=== PATIENT | female | born 1950 | race Caucasian/White ===

== ENCOUNTER 2017-12-03 09:31 | Inpatient (IN) ==
[2017-11-27 17:02] LABS: Appearance,Urine CLEAR; Bilirubin,Urine NEG (NEG); Color,Urine STRAW; Glucose,Urine (UA) NEGATIVE (NEG); Leukocyte Esterase,Urine NEG /uL (NEG); Protein,Urine NEG (NEG); Specific Gravity,Urine 1.012 (1.000-1.035); Urine Blood NEG mg/dL (<0.03); Urobilinogen,Urine NEG (NEG)
[2017-11-27 18:07] LABS: Blood Urea Nitrogen 19 mg/dl (8-23)
[2017-11-27 18:19] LABS: Basophils # (Auto) 0 K/mcL (0.0-0.3); Basophils % (Auto) 0.6 % (0.0-2.0); Eosinophils # (Auto) 0.1 K/mcL (0.0-0.7); Eosinophils % (Auto) 2.3 % (0.0-7.0); Granulocytes % (Auto) 56.6 % (38.0-78.0); Lymphocytes # (Auto) 1.6 K/mcL (1.5-4.8); Lymphocytes % (Auto) 30.7 % (15.5-49.0); Mean Cell Volume 89.1 fL (80.0-100.0); Mean Corpuscular HGB Conc 33.3 g/dL (31.0-36.0); Mean Corpuscular Hemoglobin 29.7 pg (26.0-34.0); Monocytes # (Auto) 0.5 K/mcL (0.1-0.9); Monocytes % (Auto) 9.8 % (1.0-12.0); Platelet Count 201 K/mcL (140-440); RBC 4.59 M/mcL (4.00-5.20); Red Cell Distribution Width 14.4 % (11.5-14.5)
[~2017-12-03 09:31] MED LIST: ACETAMINOPHEN 500 MG TABLET PO SCH; IPRATROPIUM/ALBUTEROL 3 ML AMPUL.NEB NEB PRN; SCOPOLAMINE 1 PATCH PATCH TOPICAL PRN; ceFAZolin 1 GM VIAL IV SCH; oxyCODONE 10 MG TAB.ER.12H PO SCH
[2017-12-03] MEDS ORDERED: GENTAMICIN SULFATE 800 MG/20 ML VIAL IR ONE (10:55)
[2017-12-03] MEDS ORDERED: KETOROLAC 30 MG, ROPIVACAINE HCL/PF 49.5 ML, EPINEPHrine 0.5 MG, 0.9 % SODIUM CHLORIDE ... IJ ONE (11:00)
[2017-12-03] MEDS ORDERED: LORazepam 2 MG/ML VIAL IV ONE (11:17)
[2017-12-03] MEDS ORDERED: KETAMINE 100 MG/ML ML IV ONE (12:05)
[2017-12-03] MEDS ORDERED: ePHEDrine 50 MG/ML AMPUL IV ONE (12:05)
[2017-12-03] MEDS ORDERED: MIDAZOLAM 2 MG/2 ML VIAL IV ONE (12:05)
[2017-12-03] MEDS ORDERED: GLYCOPYRROLATE 0.2 MG/ML VIAL IV ONE (12:05)
[2017-12-03] MEDS ORDERED: LIDOCAINE HCL/PF 100 MG/5 ML SYRINGE IV ONE (12:05)
[2017-12-03] MEDS ORDERED: TRANEXAMIC ACID 1,000 MG/10 ML VIAL IV ONE ×3 (12:05→13:57)
[2017-12-03] MEDS ORDERED: PROPOFOL 200 MG/20 ML VIAL IV ONE (12:05)
[2017-12-03] MEDS ORDERED: ONDANSETRON 4 MG/2 ML VIAL IV ONE (12:05)
[2017-12-03] MEDS ORDERED: PHENYLEPHRINE 10 MG/ML VIAL IV ONE (12:05)
[2017-12-03] MEDS ORDERED: ONDANSETRON 4 MG/2 ML VIAL IV PRN (13:33)
[2017-12-03] MEDS ORDERED: ACETAMINOPHEN 325 MG TABLET PO PRN (13:33)
[2017-12-03] MEDS ORDERED: FLEETS ADULT ENEMA PR PRN (13:33)
[2017-12-03] MEDS ORDERED: KETOROLAC 15 MG/ML VIAL IV PRN (13:33)
[2017-12-03] MEDS ORDERED: BENZOCAINE/MENTHOL 1 LOZENGE PO PRN (13:33)
[2017-12-03] MEDS ORDERED: TEMAZEPAM 15 MG CAPSULE PO PRN (13:33)
[2017-12-03] MEDS ORDERED: BISACODYL 10 MG SUPP.RECT PR PRN (13:33)
[2017-12-03] MEDS ORDERED: POLYETHYLENE GLYCOL 3350 17 GM PACKET PO PRN (13:33)
[2017-12-03] MEDS ORDERED: HYDROmorphone 2 MG/ML VIAL IV PRN (13:33)
[2017-12-03] MEDS ORDERED: MAGNESIUM HYDROXIDE 30 ML ORAL.SUSP PO PRN (13:33)
[2017-12-03] MEDS ORDERED: MEPERIDINE 25 MG/ML SYRINGE IV PRN (13:35)
[2017-12-03] MEDS ORDERED: fentaNYL 100 MCG/2 ML VIAL IV PRN (13:35)
[2017-12-03] MEDS ORDERED: IPRATROPIUM/ALBUTEROL 3 ML AMPUL.NEB NEB PRN (13:35)
[2017-12-03] MEDS ORDERED: METHOCARBAMOL 1,000 MG/10 ML VIAL IV PRN (13:35)
--- NOTE | 2017-12-03 13:39 | Brief Operative Note ---
Date of procedure: 12/03/17 Pre-op diagnosis: left hip djd Post-op diagnosis: same Procedure: left total hip Grafts/Implants: Yes Anesthesia: ASHLEIGHA Surgeon: Jose Vaca Employment Security Officer: Adrian Mason Estimated blood loss (cc): 300 Specimens Removed/Pathology: none sent Condition: stable Disposition: PACU
[2017-12-03] MEDS ORDERED: LACTATED RINGERS 1,000 ML IV SCH (13:45)
[2017-12-03] MEDS ORDERED: LORazepam 2 MG/ML VIAL IV PRN (13:53)
--- NOTE | 2017-12-03 14:08 | XRay Report ---
HISTORY: Reason for Exam:HIP ARTHROPLASTY FINDINGS: Patient has bilateral well positioned total hip prosthesis. The one on the left side is new since 09/28/14. The one on the right side was present on the prior exam. There is no evidence of a fracture. IMPRESSION: Well-positioned bilateral hip prosthesis Interpreted and Authenticated by: Robert Hsieh 12/03/17
--- NOTE | 2017-12-03 14:13 | Operative Note ---
DATE OF OPERATION: 12/03/2017 PREOPERATIVE DIAGNOSIS: Left hip degenerative arthritis. POSTOPERATIVE DIAGNOSIS: Left hip degenerative arthritis. PROCEDURE: Left total hip arthroplasty. SURGEON: Jose Vaca M.D. FIBERGLASS AUTOBODY REPAIRER: Adrian Mason PA-C. ANESTHESIA: General LMA anesthesia. COMPLICATIONS: None. DESCRIPTION OF PROCEDURE: The patient was brought to the operating room and put to sleep with general LMA anesthesia. Once asleep, the patient had the left hip sterilely prepped and draped in the usual sterile fashion. Once this was done, we then confirmed the operative site, made a superior-posterior approach to the hip using the retractors and released the capsule superior posteriorly. This was tagged and dislocated the hip. Neck cut was made at 32 mm below the central rotation of the femoral head. I then reamed up the acetabulum to the size of 49, implanted a 50 cup with a 30 mm screw. A 36 mm liner was placed. The cup was positioned at 40 degrees of inclination and 20 degrees of anteversion. Once done, we then broached up to the size 3 stem. A size 3 stem was broached and trialed. This seemed to have equal leg lengths with the trial. We then countersank it a little bit more, and it seemed to still have equal leg length. We then implanted the size 3 stem with a neutral neck length, 36 mm head. It was extremely stable through the range of motion. Finally implanted, it was up to 90 degrees internal rotation with adduction and difficult to dislocate. This was completely stable throughout. There was no tension of the IT band. It was appropriate size and offset. We irrigated again and then closed the deep fascial layer with #1 Stratafix, closed the fascial layer with #1 Stratafix, and then closed the skin with 2-0 Vicryl and adhesive closure. RBH:dianne Job ID: [id number] Doc ID: [id number] Jose Vaac MD
[2017-12-03] MEDS: 0.45 % SODIUM CHLORIDE 1,000 ML IV SCH ×2 (14:22→22:37)
[2017-12-03] MEDS ORDERED: LORazepam 1 MG TABLET PO PRN (14:25)
--- NOTE | 2017-12-03 15:01 | XRay Report ---
HISTORY: Reason for Exam:Post-Op Total Hip FINDINGS: Patient has well-positioned bilateral total hip prosthesis. The one on the left is new and there is air in the overlying soft tissues. There is no pelvic or hip fracture. No abnormal soft tissue calcification is present. IMPRESSION: Well-positioned bilateral hip prosthesis Interpreted and Authenticated by: Robert Hsieh 12/03/17
[2017-12-03] MEDS: 0.9 % SODIUM CHLORIDE 10 ML SYRINGE IV SCH ×2 (17:09→20:14)
[2017-12-03] MEDS: ceFAZolin 1 GM VIAL IV SCH (20:13)
[2017-12-03] MEDS: ASPIRIN 325 MG ENTERIC COATED TABLET PO SCH (20:13)
[2017-12-03] MEDS: DOCUSATE SODIUM 100 MG CAPSULE PO SCH (20:13)
[2017-12-03] MEDS: CLOBETASOL PROP OINT 0.05% TUBE 15GM TOPICAL SCH (20:14)
[2017-12-03] MEDS: UBIDECARENONE 100 MG PO SCH (20:15)
[2017-12-03] MEDS ORDERED: NORTRIPTYLINE 10 MG CAPSULE PO SCH (21:00)
[2017-12-03] MEDS ORDERED: SENNOSIDES 1 TABLET PO SCH (21:00)
[2017-12-04] MEDS: HYDROcodone/APAP 10/325MG TABLET PO PRN ×3 (02:29→12:04)
[2017-12-04] MEDS: ceFAZolin 1 GM VIAL IV SCH (04:04)
[2017-12-04] MEDS: 0.9 % SODIUM CHLORIDE 10 ML SYRINGE IV SCH (06:02)
--- NOTE | 2017-12-04 07:48 | Orthopedic Progress Note ---
Subjective Patient information: Note initiated : 12/04/17 at 7:47 am Service Date, if different from initiated Date: [] Patient: Ita Trent 67 y/o F admitted on 12/03/17 for Left Total Hip Arthroplasty. Chief Complaint: [Pt is stable this morning on post operative day 1 without any significant concerns or complaints. Patients vital signs have remained stable. Patients dressing is dry and is grossly instact from a neurovascular and motor standpoint. Patients 10 point ROS is otherwise negative. ] Objective Vital signs: Vital Signs Temp Pulse Resp BP Pulse Ox 12/04/17 07:11 97.4 F 68 12 105/52 98 12/04/17 04:05 99 12/04/17 03:15 98.2 F 74 12 126/66 99 12/04/17 02:32 98 12/04/17 01:00 97 12/04/17 00:11 97.6 F 73 12 106/65 96 12/03/17 23:00 96 12/03/17 20:38 99 12/03/17 20:00 97.9 F 75 12 110/72 99 12/03/17 19:00 99 12/03/17 17:19 114/71 99 12/03/17 17:00 99 12/03/17 16:22 105/67 99 12/03/17 15:49 96/63 95 12/03/17 15:33 96 12/03/17 15:19 99/64 96 12/03/17 15:04 98/64 94 12/03/17 14:50 98/55 96 12/03/17 14:34 95/57 96 12/03/17 14:19 97/58 97 12/03/17 14:06 97.4 F 56 L 15 118/64 99 12/03/17 13:52 97.0 F 63 18 114/53 98 12/03/17 13:48 13 107/55 100 12/03/17 13:43 98.2 F 13 121/63 100 12/03/17 13:38 98.2 F 11 L 126/73 100 12/03/17 09:50 97.4 F 16 130/88 95 Intake and Output 12/03/17 12/04/17 12/04/17 21:59 05:59 13:59 Intake Total 1698 / 1698 150 / 150 Output Total 250 / 250 950 / 950 Balance 1448 / 1448 -800 / -800 Intake: IV 658 / 658 Sodium Chloride 0.45% 1,000 ml 658 / 658 @ 100 mls/hr IV .Q10H KARLEY Rx#: [id number] Oral 1040 / 1040 150 / 150 Output: Void Amount 250 / 250 950 / 950 Other: Meal Dinner Percent of Meal Consumed 100% Weight 224 lb Intake & Output: Intake & Output 12/03/17 12/04/17 12/04/17 21:59 05:59 13:59 Intake Total 1698 / 1698 150 / 150 Output Total 250 / 250 950 / 950 Balance 1448 / 1448 -800 / -800 Weight 224 lb Intake: IV 658 / 658 Sodium Chloride 0.45% 1,000 ml 658 / 658 @ 100 mls/hr IV .Q10H KARLEY Rx#: [id number] Oral 1040 / 1040 150 / 150 Output: Void Amount 250 / 250 950 / 950 Other: Meal Dinner Percent of Meal Consumed 100% Incision: Yes healing Incision clean and dry: Yes Dressing: Yes clean Weight bearing status: full Neurological exam IM: Yes motor sensory intact, Yes neurovascular intact Extremities exam IM: Yes Foot pink and warm, Yes neurovascular intact - Labs CBC & BMP: 11/27/17 14:53 11/27/17 14:53 Labs: 11/27/17 14:53 Hgb 13.6 Hct 41.0 Assessment and Plan (1) Hx of total hip arthroplasty The patient has been educated regarding dressing care, Physical Therapy recommendations, home exercises, restrictions, and follow up appointments. The patient has had all necessary DME prescribed. The patient has remained relatively stable during their hospital course. I consulted with Dr Vaca regarding her O2 concerns as well as if he wants a Hospitalist Consult for her. Status: Acute
--- NOTE | 2017-12-04 07:50 | Discharge Summary ---
Ortho Discharge - IVY - Patient Instructions Diet: Regular Diet Activity: activity as tolerated, weight bearing as tolerated Total Hip Protocol: Follow activity instructions as provided by Physical Therapy. Dressing Care: May shower in 2 days - Problem Maintenance (1) Hx of total hip arthroplasty Status: Acute - Follow Up Plan Follow Up Appointments: Adrian Mason PA-C [Physician Warehouse Operations Associate] - 12/18/17 10:10 am Disposition: Home, Self-Care Prognosis: Good Rehab Potential: Good I certify that the patient requires SNF services: No Overall status at discharge: patient is progressing back to baseline - Orders For Discharge Prescriptions: Aspirin [Ecotrin] 325 mg PO BID #60 tab.ec Docusate Sodium [Colace] 100 mg PO BID #60 cap HYDROcodone/APAP 10/325MG [Veguita 10-325Mg] 1 - 2 tab PO Q4HP PRN #75 tab PRN Reason: Pain Level 3-6
[2017-12-04] MEDS ORDERED: FEXOFENADINE 180 MG TABLET PO SCH (09:00)
[2017-12-04] MEDS ORDERED: LISINOPRIL 20 MG TABLET PO SCH (09:00)
[2017-12-04] MEDS ORDERED: buPROPion 150 MG TAB.XL.24H PO SCH (09:00)
[2017-12-04] MEDS ORDERED: HYDROCHLOROTHIAZIDE 25 MG TABLET PO SCH (09:00)
[2017-12-04] MEDS ORDERED: [UNRECOGNIZED DRUG - OTHER] PO SCH (09:00)
[2017-12-04] MEDS ORDERED: FISH OIL 1,000 MG CAPSULE PO SCH (09:00)
[2017-12-04] MEDS: ASPIRIN 325 MG ENTERIC COATED TABLET PO SCH (09:01)
[2017-12-04] MEDS: DOCUSATE SODIUM 100 MG CAPSULE PO SCH (09:01)
[2017-12-04] MEDS: 0.45 % SODIUM CHLORIDE 1,000 ML IV SCH (09:33)
[2017-12-04] MEDS: CLOBETASOL PROP OINT 0.05% TUBE 15GM TOPICAL SCH (09:33)
[2017-12-04] MEDS: UBIDECARENONE 100 MG PO SCH (09:33)
== END 2017-12-04 14:55 | disposition home or self-care (01) | DRG 470 ==
LOC: MEDSUR 09:31
PROVIDERS: ADMIT Orthopaedic Surgery; ATTEND Orthopaedic Surgery

== ENCOUNTER 2018-04-19 07:30 | Inpatient (IN) ==
[2018-04-16 12:34] LABS: Appearance,Urine CLEAR; Bilirubin,Urine NEG (NEG); Color,Urine YELLOW; Glucose,Urine (UA) NEGATIVE (NEG); Leukocyte Esterase,Urine NEG /uL (NEG); Protein,Urine NEG (NEG); Specific Gravity,Urine 1.014 (1.000-1.035); Urine Blood NEG mg/dL (<0.03); Urobilinogen,Urine NEG (NEG)
[2018-04-16 12:34] LABS: Basophils # (Auto) 0.1 K/mcL (0.0-0.3); Basophils % (Auto) 1.3 % (0.0-2.0); Eosinophils # (Auto) 0.1 K/mcL (0.0-0.7); Eosinophils % (Auto) 3.1 % (0.0-7.0); Granulocytes % (Auto) 50.9 % (38.0-78.0); Lymphocytes # (Auto) 1.4 K/mcL (1.5-4.8); Lymphocytes % (Auto) 31.8 % (15.5-49.0); Mean Cell Volume 84.4 fL (80.0-100.0); Mean Corpuscular HGB Conc 34.4 g/dL (31.0-36.0); Mean Corpuscular Hemoglobin 29.1 pg (26.0-34.0); Monocytes # (Auto) 0.6 K/mcL (0.1-0.9); Monocytes % (Auto) 12.9 % (1.0-12.0); Platelet Count 182 K/mcL (140-440); RBC 4.65 M/mcL (4.00-5.20); Red Cell Distribution Width 15.9 % (11.5-14.5)
[2018-04-16 12:43] LABS: Blood Urea Nitrogen 19 mg/dl (8-23)
[~2018-04-19 07:30] MED LIST changes: -IPRATROPIUM/ALBUTEROL 3 ML AMPUL.NEB NEB PRN; -SCOPOLAMINE 1 PATCH PATCH TOPICAL PRN
[2018-04-19] MEDS ORDERED: PREGABALIN 75 MG CAPSULE PO SCH (10:00)
[2018-04-19] MEDS ORDERED: BISACODYL 10 MG SUPP.RECT PR PRN (10:17)
[2018-04-19] MEDS ORDERED: BENZOCAINE/MENTHOL 1 LOZENGE PO PRN (10:17)
[2018-04-19] MEDS ORDERED: TRANEXAMIC ACID 1,000 MG/10 ML VIAL IV SCH (10:17)
[2018-04-19] MEDS ORDERED: MAGNESIUM HYDROXIDE 30 ML ORAL.SUSP PO PRN (10:17)
[2018-04-19] MEDS ORDERED: FLEETS ADULT ENEMA PR PRN (10:17)
[2018-04-19] MEDS ORDERED: ACETAMINOPHEN 325 MG TABLET PO PRN (10:17)
[2018-04-19] MEDS ORDERED: HYDROmorphone 2 MG/ML VIAL IV PRN (10:17)
[2018-04-19] MEDS ORDERED: oxyCODONE/APAP 5/325MG TABLET PO PRN (10:17)
[2018-04-19] MEDS ORDERED: ONDANSETRON 4 MG/2 ML VIAL IV PRN (10:17)
[2018-04-19] MEDS ORDERED: POLYETHYLENE GLYCOL 3350 17 GM PACKET PO PRN (10:17)
--- NOTE | 2018-04-19 10:17 | Brief Operative Note ---
Date of procedure: 04/19/18 Pre-op diagnosis: right shoulder rca and bicep tear Post-op diagnosis: same Procedure: right reverse tsaa and bicep tenodesis Grafts/Implants: Yes Anesthesia: GETA Complications: none Surgeon: Jose Vaca Fertilizer Supervisor: Adrian Mason Estimated blood loss (cc): 100 Specimens Removed/Pathology: none sent Condition: stable Disposition: PACU
[2018-04-19] MEDS ORDERED: CLOBETASOL PROP OINT 0.05% TUBE 15GM TOPICAL PRN (10:18)
[2018-04-19] MEDS ORDERED: ceFAZolin 1 GM VIAL IV SCH ×2 (10:30→19:30)
[2018-04-19] MEDS ORDERED: TRANEXAMIC ACID 1,000 MG/10 ML VIAL IV ONE (11:40)
[2018-04-19] MEDS ORDERED: MIDAZOLAM 2 MG/2 ML VIAL IV ONE (11:40)
[2018-04-19] MEDS ORDERED: LIDOCAINE HCL/PF 100 MG/5 ML SYRINGE IV ONE (11:40)
[2018-04-19] MEDS ORDERED: fentaNYL 100 MCG/2 ML VIAL IV ONE (11:40)
[2018-04-19] MEDS ORDERED: PROPOFOL 200 MG/20 ML VIAL IV ONE (11:40)
[2018-04-19] MEDS ORDERED: GLYCOPYRROLATE 0.2 MG/ML VIAL IV ONE (11:40)
[2018-04-19] MEDS ORDERED: ONDANSETRON 4 MG/2 ML VIAL IV ONE (11:40)
[2018-04-19] MEDS ORDERED: ROCURONIUM 10 MG/ML ML IV ONE (11:40)
[2018-04-19] MEDS ORDERED: NEOSTIGMINE 1 MG/ML VIAL IV ONE (11:40)
[2018-04-19] MEDS ORDERED: KETAMINE 100 MG/ML ML IV ONE (11:40)
[2018-04-19] MEDS ORDERED: BUPIVACAINE PF 0.5% 30 ML VIAL IJ ONE (11:40)
[2018-04-19] MEDS ORDERED: GENTAMICIN SULFATE 800 MG/20 ML VIAL IR ONE (12:12)
[2018-04-19] MEDS ORDERED: MEPERIDINE 50 MG/ML INJECTION IM PRN (12:53)
[2018-04-19] MEDS ORDERED: METHOCARBAMOL 1,000 MG/10 ML VIAL IV PRN (12:53)
[2018-04-19] MEDS ORDERED: PROMETHAZINE 25 MG/ML VIAL IM PRN (12:53)
[2018-04-19] MEDS ORDERED: IPRATROPIUM/ALBUTEROL 3 ML AMPUL.NEB NEB PRN (12:53)
[2018-04-19] MEDS ORDERED: PROMETHAZINE 25 MG/ML VIAL IV PRN (12:53)
[2018-04-19] MEDS ORDERED: LORazepam 2 MG/ML VIAL IV PRN (12:53)
[2018-04-19] MEDS ORDERED: MEPERIDINE 25 MG/ML SYRINGE IV PRN (12:53)
[2018-04-19] MEDS ORDERED: LACTATED RINGERS 1,000 ML IV SCH (13:00)
[2018-04-19] MEDS: fentaNYL 100 MCG/2 ML VIAL IV PRN ×3 (13:41→13:45)
--- NOTE | 2018-04-19 14:13 | XRay Report ---
CLINICAL INFORMATION: Postsurgical follow-up TECHNIQUE: AP and Y view COMPARISON: None. FINDINGS: Status post right reverse shoulder arthroplasty. Alignment appears anatomic. IMPRESSION: Status post right reverse shoulder arthroplasty Interpreted and Authenticated by: Reid Ruffin 04/19/18
[2018-04-19] MEDS: 0.45 % SODIUM CHLORIDE 1,000 ML IV SCH ×2 (15:08→20:42)
[2018-04-19] MEDS: 0.9 % SODIUM CHLORIDE 10 ML SYRINGE IV SCH ×2 (15:08→20:43)
[2018-04-19] MEDS: KETOROLAC 15 MG/ML VIAL IV PRN (15:17)
[2018-04-19] MEDS ORDERED: traMADol 50 MG TABLET PO PRN (16:14)
--- NOTE | 2018-04-19 16:48 | Operative Note ---
DATE OF OPERATION: 04/19/2018 PREOPERATIVE DIAGNOSIS: Right shoulder rotator cuff arthropathy. POSTOPERATIVE DIAGNOSIS: Right shoulder rotator cuff arthropathy. PROCEDURE: Right reverse total shoulder and biceps tenodesis. SURGEON: Jose Vaca M.D. [place] LAYUP LINE CORE FEEDER: Adrian Mason PA-C. ANESTHESIA: General LMA anesthesia. IMPLANTS: Anthony reverse total shoulder, implant size per nurse's note. COMPLICATIONS: None. ESTIMATED BLOOD LOSS: 100 mL. SPECIMENS REMOVED: None. CONDITION: Stable. DISPOSITION: To PACU at the end of the case. DESCRIPTION OF PROCEDURE: The patient was brought to the operating room and put to sleep with general LMA anesthesia. The patient had failed all conservative measures and we proceeded with a right reverse total shoulder. At this point, we sterilely prepped and draped the right upper extremity. A timeout was performed. We confirmed the operative site. Preop antibiotics and tranexamic acid had been given. We irrigated thoroughly and made our anterior deltoid incision. Once this was done, we exposed the deltopectoral interval. This was retracted with a Howard retractor and released the subscap. We dislocated the humeral head and made our neck cut at the surgical neck region using the Anthony guide. This did show a tear of the supraspinatus tendon, and the biceps tendon was released intraarticularly. We placed a protective plate on the humeral head and bone which helped with retraction posteriorly and inferiorly. I performed a 360 degree capsular release along with the labrum removal. Placing retractors, I placed the pin centrally in the glenoid and reamed to the size 36 component. I placed the glenosphere at 10 degrees of inclination. A central screw was approximately 32 mm and then superior screw was 28, 24 mm. These fit very well with good purchase. I placed a 36 mm head with 2 mm of offset, 2 mm of the eccentricity. Once this was well positioned and a tapered lock was secured, we irrigated thoroughly and prepared the humerus. This was prepared using broaches up to the size 9. We trialed the standard thickness poly. This seemed to fit nicely, but a little loose. We went to the 6 mm. This seemed to be the most appropriate. We irrigated thoroughly, placed cement at the end of the bone because of the bone quality and tapped the stem into place. The upper portion was made to grow in with bone. Once done, we then placed a +6 poly liner with a 6 mm total thickness, and this was locked into place. This was anatomically positioned. We reduced the shoulder without difficulty and irrigated thoroughly. I then repaired the biceps tendon with #2 Ethibond stitch to the pec major with two [id number] stitches and roughened the bone underneath the repair. We irrigated thoroughly and then closed the interval with 2-0 Vicryl, closed the skin with 2-0 Vicryl and adhesive closure. The patient tolerated this well without complication. Blood loss about 100 mL. JAE:dianne Job ID: [id number] Doc ID: [id number] Jose Vaca MD
[2018-04-19] MEDS: ceFAZolin 1 GM VIAL IV SCH (19:13)
[2018-04-19] MEDS: DOCUSATE SODIUM 100 MG CAPSULE PO SCH (20:42)
[2018-04-19] MEDS ORDERED: TEMAZEPAM 15 MG CAPSULE PO PRN (21:00)
[2018-04-19] MEDS ORDERED: NORTRIPTYLINE 10 MG CAPSULE PO SCH (21:00)
[2018-04-19] MEDS ORDERED: NON FORMULARY MEDICATION 1 DOSE MISCELL (Ubidecarenone [Coenzyme Q10] 100 MG) PO SCH (21:00)
[2018-04-19] MEDS ORDERED: SENNOSIDES 1 TABLET PO SCH (21:00)
[2018-04-20] MEDS: 0.45 % SODIUM CHLORIDE 1,000 ML IV SCH ×2 (01:18→06:33)
[2018-04-20] MEDS: ACETAMINOPHEN W/CODEINE #3 1 TABLET PO PRN ×2 (01:21→09:57)
[2018-04-20] MEDS: ceFAZolin 1 GM VIAL IV SCH (03:02)
[2018-04-20] MEDS: KETOROLAC 15 MG/ML VIAL IV PRN (03:08)
[2018-04-20] MEDS: 0.9 % SODIUM CHLORIDE 10 ML SYRINGE IV SCH (05:59)
[2018-04-20] MEDS: DOCUSATE SODIUM 100 MG CAPSULE PO SCH (08:26)
[2018-04-20] MEDS ORDERED: HYDROCHLOROTHIAZIDE 25 MG TABLET PO SCH (09:00)
[2018-04-20] MEDS ORDERED: FEXOFENADINE 180 MG TABLET PO SCH (09:00)
[2018-04-20] MEDS ORDERED: LOSARTAN 50 MG TABLET PO SCH (09:00)
[2018-04-20] MEDS ORDERED: buPROPion 150 MG TAB.XL.24H PO SCH (09:00)
[2018-04-20] MEDS ORDERED: FISH OIL 1,000 MG CAPSULE PO SCH (09:00)
--- NOTE | 2018-04-20 09:21 | Orthopedic Progress Note ---
Subjective Patient information: Note initiated : 04/20/18 at 9:19 am Service Date, if different from initiated Date: [] Patient: Ita Trent 67 y/o F admitted on 04/19/18 for Right Reverse Total Shoulder Arthroplasty with . Chief Complaint: [Pt is stable this morning on post operative day 1 without any significant concerns or complaints. Patients vital signs have remained stable. Patients dressing is dry and is grossly intact from a neurovascular and motor standpoint. Patients 10 point ROS is otherwise negative. ] Objective Vital signs: Vital Signs Temp Pulse Resp BP Pulse Ox 04/20/18 08:21 99.2 F H 18 124/76 96 04/20/18 05:00 97.8 F 68 18 123/70 95 04/20/18 00:18 97.8 F 62 18 137/75 96 04/19/18 18:49 60 12 149/86 96 04/19/18 17:49 60 12 140/83 96 04/19/18 17:34 61 12 152/86 96 04/19/18 17:19 60 12 146/82 96 04/19/18 17:04 60 149/86 96 04/19/18 16:04 62 12 136/83 94 04/19/18 15:50 69 16 126/59 66 L 04/19/18 15:34 62 16 150/79 95 04/19/18 15:19 64 12 154/87 04/19/18 15:04 97.6 F 60 14 157/77 98 04/19/18 14:50 97.6 F 59 L 12 143/62 95 04/19/18 14:35 56 L 12 149/66 94 04/19/18 14:20 56 L 12 122/61 99 04/19/18 14:15 59 L 13 132/65 100 04/19/18 14:05 60 15 132/68 97 04/19/18 14:00 64 12 126/85 96 04/19/18 13:55 66 15 134/56 97 04/19/18 13:50 70 12 147/63 98 04/19/18 13:45 58 L 17 142/62 100 04/19/18 13:40 66 17 134/57 100 04/19/18 13:35 96.9 F L 68 20 121/63 96 Intake and Output 04/19/18 04/20/18 04/20/18 21:59 05:59 13:59 Intake Total 110 / 110 1547 / 1547 Output Total 475 / 475 700 / 700 Balance -365 / -365 847 / 847 Intake: IV 1447 / 1447 Sodium Chloride 0.45% 1,000 ml 1447 / 1447 @ 100 mls/hr IV .Q10H KARLEY Rx#: [id number] Oral 110 / 110 100 / 100 Output: Void Amount 475 / 475 700 / 700 Other: Meal sandwich, jello Percent of Meal Consumed 100% Feeding Ability Assist with Tray Set Up Urine Color Bright Yellow # Voids 1 1 Weight 209 lb Intake & Output: Intake & Output 04/19/18 04/20/18 04/20/18 21:59 05:59 13:59 Intake Total 110 / 110 1547 / 1547 Output Total 475 / 475 700 / 700 Balance -365 / -365 847 / 847 Weight 209 lb Intake: IV 1447 / 1447 Sodium Chloride 0.45% 1,000 ml 1447 / 1447 @ 100 mls/hr IV .Q10H KARLEY Rx#: [id number] Oral 110 / 110 100 / 100 Output: Void Amount 475 / 475 700 / 700 Other: Meal sandwich, jello Percent of Meal Consumed 100% Feeding Ability Assist with Tray Set Up Urine Color Bright Yellow # Voids 1 1 Incision: Yes healing Incision clean and dry: Yes Dressing: Yes clean Weight bearing status: full Neurological exam IM: Yes motor sensory intact, Yes neurovascular intact Extremities exam IM: Yes Foot pink and warm, Yes neurovascular intact - Labs CBC & BMP: 04/16/18 10:51 04/16/18 10:50 Labs: Orthopedic Labs 04/16/18 10:50 PT 12.5 INR 0.9 APTT 34 04/16/18 10:51 Hgb 13.5 Hct 39.3 Assessment and Plan (1) History of reverse total replacement of right shoulder joint The patient has been educated regarding dressing care, Physical Therapy recommendations, home exercises, restrictions, and follow up appointments. The patient has had all necessary DME prescribed. The patient has remained relatively stable during their hospital course. Leave Dermabond patch intact until followup Status: Acute
--- NOTE | 2018-04-20 09:23 | Discharge Summary ---
Ortho Discharge - TSA - Patient Instructions Diet: Regular Diet Activity: activity as tolerated, weight bearing as tolerated Total Shoulder Protocol: Leave immobilizer in place except for bathing and ROM. Abduction pillow. Continue to wear sling until seen by physician. Codman Pendulum : These exercises use momentum produced by your body to move your shoulder joint. Bend your knees and shift your weight to your front leg, then back, allowing your arm to swing in the same directions. Using the same technique, alternately shift your weight between your right and left legs, allowing your arm to swing from side to side. These exercises are also performed in counterclockwise and clockwise circular motions. Typically these exercises are performed several times per day, for a set number repetitions or minutes, such as 20 times in a row or 5 minutes at a time. Dressing Care: May shower in 2 days - Problem Maintenance (1) History of reverse total replacement of right shoulder joint Status: Acute - Follow Up Plan Disposition: Home, Self-Care Prognosis: Good Rehab Potential: Good I certify that the patient requires SNF services: No Overall status at discharge: patient is progressing back to baseline - Orders For Discharge Prescriptions: Acetaminophen with Codeine [Acetaminophen-Cod #3 Tablet] 1 - 2 tab PO Q4HP PRN # 75 tab PRN Reason: Pain Docusate Sodium [Colace] 100 mg PO BID #60 cap
== END 2018-04-20 13:15 | disposition home or self-care (01) | DRG 483 ==
LOC: MEDSUR 08:55
PROVIDERS: ADMIT Orthopaedic Surgery; ATTEND Orthopaedic Surgery

== ENCOUNTER 2018-07-15 07:51 | Inpatient (IN) ==
[2018-07-09 13:15] LABS: Appearance,Urine CLEAR; Bilirubin,Urine NEG (NEG); Color,Urine YELLOW; Glucose,Urine (UA) NEGATIVE (NEG); Leukocyte Esterase,Urine NEG /uL (NEG); Protein,Urine NEG (NEG); Specific Gravity,Urine 1.017 (1.000-1.035); Urine Blood NEG mg/dL (<0.03); Urobilinogen,Urine NEG (NEG)
[2018-07-09 13:56] LABS: Basophils # (Auto) 0 K/mcL (0.0-0.3); Basophils % (Auto) 0.7 % (0.0-2.0); Eosinophils # (Auto) 0.1 K/mcL (0.0-0.7); Eosinophils % (Auto) 1.2 % (0.0-7.0); Lymphocytes # (Auto) 1.5 K/mcL (1.5-4.8); Lymphocytes % (Auto) 27.8 % (15.5-49.0); Mean Cell Volume 88.2 fL (80.0-100.0); Mean Corpuscular HGB Conc 33.4 g/dL (31.0-36.0); Mean Corpuscular Hemoglobin 29.4 pg (26.0-34.0); Monocytes # (Auto) 0.5 K/mcL (0.1-0.9); Monocytes % (Auto) 9.3 % (1.0-12.0); Platelet Count 193 K/mcL (140-440); RBC 4.87 M/mcL (4.00-5.20); Red Cell Distribution Width 14.7 % (11.5-14.5)
[2018-07-09 14:06] LABS: Blood Urea Nitrogen 21 mg/dl (8-23)
[~2018-07-15 07:51] MED LIST changes: +PREGABALIN 75 MG CAPSULE PO SCH
[2018-07-15] MEDS ORDERED: ONDANSETRON 4 MG/2 ML VIAL IV ONE (10:35)
[2018-07-15] MEDS ORDERED: fentaNYL 250 MCG/5 ML VIAL IV ONE (10:35)
[2018-07-15] MEDS ORDERED: LIDOCAINE HCL/PF 100 MG/5 ML SYRINGE IV ONE (10:35)
[2018-07-15] MEDS ORDERED: GLYCOPYRROLATE 0.2 MG/ML VIAL IV ONE (10:35)
[2018-07-15] MEDS ORDERED: SUCCINYLCHOLINE 20 MG/ML ML IV ONE (10:35)
[2018-07-15] MEDS ORDERED: TRANEXAMIC ACID 1,000 MG/10 ML VIAL IV ONE (10:35)
[2018-07-15] MEDS ORDERED: MIDAZOLAM 5 MG/5 ML VIAL IV ONE (10:35)
[2018-07-15] MEDS ORDERED: PROPOFOL 200 MG/20 ML VIAL IV ONE (10:35)
[2018-07-15] MEDS ORDERED: KETAMINE 100 MG/ML ML IV ONE (10:35)
[2018-07-15] MEDS ORDERED: ROPIVACAINE HCL/PF 30 ML VIAL IJ ONE (10:35)
[2018-07-15] MEDS ORDERED: DEXAMETHASONE 10 MG/ML VIAL IV ONE (10:35)
[2018-07-15] MEDS ORDERED: GENTAMICIN SULFATE 800 MG/20 ML VIAL IR ONE (11:11)
[2018-07-15] MEDS ORDERED: IPRATROPIUM/ALBUTEROL 3 ML AMPUL.NEB NEB PRN (11:40)
[2018-07-15] MEDS ORDERED: METOPROLOL TARTRATE 5 MG/5 ML VIAL IV PRN (11:40)
[2018-07-15] MEDS ORDERED: ONDANSETRON 4 MG/2 ML VIAL IV PRN ×2 (11:40→11:55)
[2018-07-15] MEDS ORDERED: NALOXONE HCL 0.4 MG/ML VIAL IV PRN (11:40)
[2018-07-15] MEDS ORDERED: ATROPINE SULFATE 0.4 MG/ML VIAL IV PRN (11:40)
[2018-07-15] MEDS ORDERED: METHOCARBAMOL 1,000 MG/10 ML VIAL IV PRN (11:40)
[2018-07-15] MEDS ORDERED: ePHEDrine 50 MG/ML AMPUL IV PRN (11:40)
[2018-07-15] MEDS ORDERED: PROMETHAZINE 25 MG/ML VIAL IV PRN (11:40)
[2018-07-15] MEDS ORDERED: fentaNYL 100 MCG/2 ML VIAL IV PRN (11:40)
[2018-07-15] MEDS ORDERED: diphenhydrAMINE 50 MG/ML VIAL IV PRN (11:40)
[2018-07-15] MEDS ORDERED: FLUMAZENIL 0.1 MG/ML ML IV PRN (11:40)
[2018-07-15] MEDS ORDERED: LACTATED RINGERS 1,000 ML IV SCH (11:45)
[2018-07-15] MEDS ORDERED: HYDROmorphone 2 MG/ML VIAL IV PRN (11:55)
[2018-07-15] MEDS ORDERED: ACETAMINOPHEN 325 MG TABLET PO PRN (11:55)
[2018-07-15] MEDS ORDERED: FLEETS ADULT ENEMA PR PRN (11:55)
[2018-07-15] MEDS ORDERED: MAGNESIUM HYDROXIDE 30 ML ORAL.SUSP PO PRN (11:55)
[2018-07-15] MEDS ORDERED: BISACODYL 10 MG SUPP.RECT PR PRN (11:55)
[2018-07-15] MEDS ORDERED: TRANEXAMIC ACID 1,000 MG/10 ML VIAL IV SCH (11:55)
[2018-07-15] MEDS ORDERED: POLYETHYLENE GLYCOL 3350 17 GM PACKET PO PRN (11:55)
[2018-07-15] MEDS ORDERED: BENZOCAINE/MENTHOL 1 LOZENGE PO PRN (11:55)
--- NOTE | 2018-07-15 11:55 | Brief Operative Note ---
Date of procedure: 07/15/18 Pre-op diagnosis: Left shoulder djd and rct and bicep tendon tear Post-op diagnosis: same Procedure: left reverse tsa and bicep tenodesis Grafts/Implants: Yes Anesthesia: GETA Complications: none Surgeon: Jose Vaca Lead Mason Tender: Adrian Mason Estimated blood loss (cc): 200 Specimens Removed/Pathology: none sent Condition: stable Disposition: PACU
[2018-07-15] MEDS ORDERED: CLOBETASOL PROP OINT 0.05% TUBE 15GM TOPICAL PRN (11:58)
--- NOTE | 2018-07-15 12:47 | Operative Note ---
DATE OF OPERATION: 07/15/2018 PREOPERATIVE DIAGNOSIS: Left shoulder rotator cuff arthropathy with severe arthritis and biceps tendinopathy. POSTOPERATIVE DIAGNOSIS: Left shoulder rotator cuff arthropathy with severe arthritis and biceps tendinopathy. PROCEDURE: Left reverse total shoulder. SURGEON: Jose Vaca MD TRUCKLOAD CHECKER: Adrian Mason PA-C ANESTHESIA: General LMA anesthesia. COMPLICATIONS: None. ESTIMATED BLOOD LOSS: About 200 mL IMPLANTS: Cementless Anthony components with a standard thickness poly, a 36 mm head with 2 mm of offset, a size 9 cementless stem. The screw sizes were a central screw measuring 32 mm, peripheral screws measuring 32, 28 and 16. DESCRIPTION OF PROCEDURE: The patient was brought to the operating room and put to sleep with general anesthesia. Once asleep, the patient had left shoulder sterilely prepped and draped in the usual sterile fashion. Ioban was placed over the skin. Timeout was performed, we confirmed the operative site and preop antibiotics and tranexamic acid had been given. We made a deltopectoral approach to the shoulder. Once all was confirmed we retracted the deltoid posteriorly, released the subscap, which was intact, and identified the bicep tendon which was reattached to the pec major muscle using both Ethibond and #1 FiberWire stitch, three [id number]-eceza stitches. We irrigated thoroughly and then revealed the head. We released the capsule inferiorly and made our neck cut at its anatomical neck region. Once done, we then placed a protective plate on the bone and then this was retracted posteriorly. We identified the glenoid, released the remnants of the biceps and side and removed the labrum. A 360-degree capsular release was performed and we placed a central pin in the glenoid at 10 degrees of inclination. Once done, we then reamed up to the size of 36 and removed any spurs. We placed the metaglene with a 32 mm central screw, with excellent fixation. The peripheral screws measured 16, 28 and 32. These seemed to have excellent fixation as well. We irrigated thoroughly and then placed a 36 mm head around the metaglene. This had 2 mm of offset. It was tapped into place with good fixation. We then prepared the humerus. This was broached up to the size of 9. We trialed the 9 with a standard poly. This seemed to be very balanced and had 1 mm of play. We placed the final implants with a small amount cement at the distal end of the stem for immediate fixation, pressed the stem into place, a size 9 with a standard thickness poly which was tapped into place. This was reduced, and was very stable through the full arc of motion, and then we closed the fascial layer of the deltoid with #2 Vicryl and closed the skin with 2-0 Vicryl and adhesive closure. The patient tolerated this well without complication. RBH:michelle Job ID: [id number] Doc ID: [id number] Jose Vaca MD
[2018-07-15] MEDS: HYDROmorphone 2 MG/ML VIAL IV PRN ×2 (12:50→13:06)
[2018-07-15] MEDS: KETOROLAC 15 MG/ML VIAL IV PRN ×2 (12:53→23:04)
[2018-07-15] MEDS: 0.45 % SODIUM CHLORIDE 1,000 ML IV SCH ×2 (13:27→21:51)
--- NOTE | 2018-07-15 14:02 | XRay Report ---
CLINICAL INFORMATION: Post-Op Total Shoulder COMPARISON: None. FINDINGS: Total shoulder prostheses is anatomically aligned. No osseous abnormality. Soft tissues swelling seen as expected. IMPRESSION: Negative Interpreted and Authenticated by: Reid Finley 07/15/18
[2018-07-15] MEDS: 0.9 % SODIUM CHLORIDE 10 ML SYRINGE IV SCH ×2 (14:44→21:51)
[2018-07-15] MEDS: traMADol 50 MG TABLET PO PRN ×2 (17:53→23:05)
[2018-07-15] MEDS: ceFAZolin 1 GM VIAL IV SCH (17:55)
[2018-07-15] MEDS: DOCUSATE SODIUM 100 MG CAPSULE PO SCH (20:39)
[2018-07-15] MEDS ORDERED: CALCIUM (OYSTER SHELL) 500 MG TABLET PO SCH (21:00)
[2018-07-15] MEDS ORDERED: [UNRECOGNIZED DRUG - OTHER] PO SCH (21:00)
[2018-07-15] MEDS ORDERED: SENNOSIDES 1 TABLET PO SCH (21:00)
[2018-07-15] MEDS ORDERED: TEMAZEPAM 15 MG CAPSULE PO PRN (21:00)
[2018-07-15] MEDS ORDERED: NON FORMULARY MEDICATION 1 DOSE MISCELL (Ubidecarenone [Coenzyme Q10] 100 MG) PO SCH (21:00)
[2018-07-15] MEDS ORDERED: NORTRIPTYLINE 10 MG CAPSULE PO SCH (21:00)
[2018-07-15] MEDS ORDERED: LORATADINE 10 MG TABLET PO SCH (21:00)
[2018-07-15] MEDS ORDERED: LYSINE HCL 1000 MG PO SCH (21:00)
[2018-07-16] MEDS: ceFAZolin 1 GM VIAL IV SCH (02:27)
--- NOTE | 2018-07-16 07:00 | Orthopedic Progress Note ---
Subjective Patient information: Note initiated : 07/16/18 at 6:59 am Service Date, if different from initiated Date: [] Patient: Ita Trent 67 y/o F admitted on 07/15/18 for Left Reverse Total Shoulder Arthroplasty. Chief Complaint: [Pt is stable this morning on post operative day 1 without any significant concerns or complaints. Patients vital signs have remained stable. Patients dressing is dry and is grossly intact from a neurovascular and motor standpoint. Patients 10 point ROS is otherwise negative. ] Objective Vital signs: Vital Signs Temp Pulse Resp BP Pulse Ox 07/16/18 03:39 97.4 F 74 14 122/67 95 07/15/18 23:32 97.5 F 88 14 142/78 96 07/15/18 19:33 97.4 F 76 14 140/78 96 07/15/18 16:00 98.6 F 16 121/69 97 07/15/18 15:25 103/63 95 07/15/18 15:08 94 07/15/18 14:55 110/73 95 07/15/18 14:25 118/72 91 07/15/18 14:10 101/69 92 07/15/18 13:54 110/69 98 07/15/18 13:24 123/80 97 07/15/18 13:17 98.2 F 73 12 141/59 98 07/15/18 13:06 97.4 F 67 14 140/64 95 07/15/18 12:56 97.4 F 73 16 141/82 97 07/15/18 12:46 97.4 F 74 16 145/64 97 07/15/18 12:36 97.4 F 75 16 133/61 95 07/15/18 12:26 97.5 F 75 16 130/70 97 07/15/18 12:21 97.2 F 70 16 111/67 99 07/15/18 12:16 97.7 F 72 16 130/61 97 07/15/18 12:11 97.7 F 62 16 104/51 97 07/15/18 08:00 97.8 F 18 142/82 97 Intake and Output 07/15/18 07/16/18 07/16/18 21:59 05:59 13:59 Intake Total 1600 / 1600 450 / 450 Output Total 1700 / 1700 1600 / 1600 Balance -100 / -100 -1150 / -1150 Intake: Oral 1600 / 1600 450 / 450 Output: Void Amount 1700 / 1700 1600 / 1600 Other: Meal Dinner Percent of Meal Consumed 75% Feeding Ability Independent Urine Appearance Clear Urine Color Pale Weight 228 lb Intake & Output: Intake & Output 07/15/18 07/16/18 07/16/18 21:59 05:59 13:59 Intake Total 1600 / 1600 450 / 450 Output Total 1700 / 1700 1600 / 1600 Balance -100 / -100 -1150 / -1150 Weight 228 lb Intake: Oral 1600 / 1600 450 / 450 Output: Void Amount 1700 / 1700 1600 / 1600 Other: Meal Dinner Percent of Meal Consumed 75% Feeding Ability Independent Urine Appearance Clear Urine Color Pale Incision: Yes healing Incision clean and dry: Yes Dressing: Yes clean Weight bearing status: full Neurological exam IM: Yes motor sensory intact Extremities exam IM: Yes neurovascular intact - Labs CBC & BMP: 07/09/18 11:48 07/09/18 11:48 Labs: Orthopedic Labs 07/09/18 11:47 PT 12.8 INR 1.0 APTT 34 07/09/18 11:48 Hgb 14.3 Hct 43.0 Assessment and Plan (1) History of reverse total replacement of left shoulder joint The patient has been educated regarding dressing care, Physical Therapy recommendations, home exercises, restrictions, and follow up appointments. The patient has had all necessary DME prescribed. The patient has remained relatively stable during their hospital course. Leave Dermabond patch intact until followup Status: Acute (2) History of reverse total replacement of left shoulder joint Status: Acute
--- NOTE | 2018-07-16 07:02 | Discharge Summary ---
Ortho Discharge - TSA - Patient Instructions Diet: Regular Diet Activity: activity as tolerated, weight bearing as tolerated Total Shoulder Protocol: Leave immobilizer in place except for bathing and ROM. Abduction pillow. Continue to wear sling until seen by physician. Codman Pendulum : These exercises use momentum produced by your body to move your shoulder joint. Bend your knees and shift your weight to your front leg, then back, allowing your arm to swing in the same directions. Using the same technique, alternately shift your weight between your right and left legs, allowing your arm to swing from side to side. These exercises are also performed in counterclockwise and clockwise circular motions. Typically these exercises are performed several times per day, for a set number repetitions or minutes, such as 20 times in a row or 5 minutes at a time. Dressing Care: May shower in 2 days - Problem Maintenance (1) History of reverse total replacement of left shoulder joint Status: Acute (2) History of reverse total replacement of left shoulder joint Status: Acute - Follow Up Plan Follow Up Appointments: Adrian Mason PA-C [Physician Embossograph Operator] - 08/05/18 10:40 am Disposition: Home, Self-Care Prognosis: Good Rehab Potential: Good I certify that the patient requires SNF services: No Overall status at discharge: patient is progressing back to baseline - Orders For Discharge Prescriptions: Docusate Sodium [Colace] 100 mg PO BID #60 cap traMADol [Ultram] 50 mg PO Q4-6HP PRN #75 tab PRN Reason: Pain
[2018-07-16] MEDS: traMADol 50 MG TABLET PO PRN (07:32)
[2018-07-16] MEDS: 0.9 % SODIUM CHLORIDE 10 ML SYRINGE IV SCH (07:33)
[2018-07-16] MEDS: KETOROLAC 15 MG/ML VIAL IV PRN (07:33)
[2018-07-16] MEDS: DOCUSATE SODIUM 100 MG CAPSULE PO SCH (08:35)
[2018-07-16] MEDS ORDERED: [UNRECOGNIZED DRUG - OTHER] PO SCH (09:00)
[2018-07-16] MEDS ORDERED: HYDROCHLOROTHIAZIDE 25 MG TABLET PO SCH (09:00)
[2018-07-16] MEDS ORDERED: LOSARTAN 50 MG TABLET PO SCH (09:00)
[2018-07-16] MEDS ORDERED: [UNRECOGNIZED DRUG - OTHER] PO SCH (09:00)
[2018-07-16] MEDS ORDERED: MAGNESIUM OXIDE 400 MG TABLET PO SCH (09:00)
[2018-07-16] MEDS ORDERED: TAURINE 1000 MG PO SCH (09:00)
[2018-07-16] MEDS ORDERED: VITAMIN D3 5,000 UNIT CAPSULE PO SCH (09:00)
[2018-07-16] MEDS ORDERED: buPROPion 150 MG TAB.XL.24H PO SCH (09:00)
[2018-07-16] MEDS ORDERED: POTASSIUM 99 MG PO SCH (09:00)
[2018-07-16] MEDS: 0.45 % SODIUM CHLORIDE 1,000 ML IV SCH (10:35)
== END 2018-07-16 11:00 | disposition home or self-care (01) | DRG 483 ==
LOC: MEDSUR 07:51
PROVIDERS: ADMIT Orthopaedic Surgery; ATTEND Orthopaedic Surgery